=== PATIENT | female | born 1945 | race Asian ===

== ENCOUNTER 2022-01-01 10:31 | Inpatient (IN) | payer OTHER ==
[~2022-01-01] VITALS: Ht 134.6 cm; Wt 49.0 kg
[2022-01-01 10:34] VITALS: BP_SYST 179
--- NOTE | 2022-01-01 10:35 | NUR ---
PT TRIAGED AND PLACED IN ED WAITING ROOM FOR AVAIABLE BED, MD AWARE OF MSE NEEDS
[2022-01-01] MEDS ORDERED: ALBUTEROL SULFATE 0.083% 2.5 MG/3 ML VIAL.NEB INH ONE (11:15)
--- NOTE | 2022-01-01 11:17 | NUR ---
RT WITH PT FOR BREATHING TX
--- NOTE | 2022-01-01 12:50 | NUR ---
RECEIVED PT TO BED #8 FROM HOME WITH CC OF SOME DIFFICULTY BREATHING AT HOME. PT STATED SHE HAD SOME ISSUES WITH THE ANIMALS THAT VISITED WITH HER FAMILY. PT IS STABLE, NAD, VSS, AAOx4, AWAITING DISPOSITION WITH PLAN OF CARE.
[2022-01-01 14:40] LABS: HEMATOCRIT 37.5 % (36-48); HEMOGLOBIN 11.8 g/dL (12.0-16.0); MEAN CORPUSCULAR HEMOGLOBIN 21 pg (27-31); MEAN CORPUSCULAR HGB CONC 31 % (32-36); MEAN CORPUSCULAR VOLUME 65 fL (79.0-98.0); PLATELET COUNT (AUTO) 172 K/uL (130-430); RED BLOOD CELL COUNT(AUTO) 5.76 MIL/uL (4.2-6.2); RED CELL DISTRIBUTION WIDTH 16.1 % (9.0-15.0); WHITE BLOOD COUNT (AUTO) 7.7 K/uL (4.8-10.8)
[2022-01-01 14:51] LABS: ANION GAP 2 (5-15); CALCIUM 8.1 mg/dL (8.4-11.0); CHLORIDE 100 mmol/L (98-107); CREATININE 0.62 mg/dL (0.55-1.30); GLUCOSE 110 mg/dL (70-99); POTASSIUM 3.1 mmol/L (3.5-5.1); SODIUM SERUM 135 mmol/L (136-145); UREA NITROGEN, BLOOD 14 mg/dL (8-21)
[2022-01-01 14:57] LABS: PROTHROMBIN TIME 10.1 SECS (9.5-12.5)
[2022-01-01 15:00] LABS: ALANINE AMINOTRANSFERASE 31 U/L (12-78); ALBUMIN 3.4 g/dL (3.4-4.8); ASPARTATE AMINOTRANSFERASE 25 U/L (10-37); TOTAL BILIRUBIN 1.4 mg/dL (0.0-1.0)
[2022-01-01 15:01] LABS: LYMPHOCYTES % (MANUAL) 16 % (20-46)
[2022-01-01 15:02] LABS: BASOPHILS % (MANUAL) 0 % (0-2); EOSINOPHILS % (MANUAL) 2 % (0-7); MONOCYTES % (MANUAL) 7 % (0-11)
[2022-01-01] MEDS ORDERED: FUROSEMIDE 40 MG/4 ML VIAL IVP ONE (15:15)
[2022-01-01] MEDS ORDERED: POTASSIUM CHLORIDE 20 MEQ/PKT PACKET PO ONE (15:15)
--- NOTE | 2022-01-01 15:30 | NUR ---
UA and covid swab collected and sent to lab
--- NOTE | 2022-01-01 15:36 | NUR ---
# 20 gauge angiocath placed to rfa. Use of asceptic technique. Opsite placed over site. Blood return noted. Blood for lab drawn from site. Flushed with 10 cc of normal saline. No evidence of infiltration noted. Patient tolerated well.
[2022-01-01 15:41] LABS: BILIRUBIN,URINE NEGATIVE (NEGATIVE); BLOOD, URINE NEGATIVE (NEGATIVE); CLARITY/URINE CLEAR (CLEAR); COLOR,URINE YELLOW (YELLOW); GLUCOSE,URINE NEGATIVE (NEGATIVE); KETONES,URINE TRACE (NEGATIVE); LEUKOCYTE ESTERASE ,URINE NEGATIVE (NEGATIVE); NITRITE, URINE NEGATIVE (NEGATIVE); PH,URINE 7.5 (5.0-8.0); PROTEIN URINE NEGATIVE (NEGATIVE); UROBILINOGEN,URINE 0.2 (0.2-1.0)
--- NOTE | 2022-01-01 16:20 | NUR ---
Admit bed requested Patient will be admitted to care of . Admitted to TELE unit. Diagnosis CHF Inpatient (Yes or No) Y Observation (Yes or No) N Orientation concerns or request close to nursing station (Yes or No) N Covid Status N On vent or bipap N Isolation requirements N Needs a sitter N From Home (Yes or if No enter name of facility) Y Requires Dialysis (Yes or No) N Med Rec Completed (Yes of No) Y
[2022-01-01] MEDS ORDERED: ATEN-41 PO (16:44)
[2022-01-01] MEDS ORDERED: LOSA100T3 PO (16:44)
[2022-01-01] MEDS ORDERED: HYDR-4038 PO (16:44)
--- NOTE | 2022-01-01 17:13 | NUR ---
Patient will be admitted to care of [facility]. Admitted to TELE unit. Will go to room 134 B. Belongings list completed. Complete and up to date summary report printed. SBAR report to be given at bedside with opportunity for questions.
[2022-01-01 17:31] VITALS: BP_SYST 137
[2022-01-01 20:00] VITALS: BP_SYST 120
[2022-01-01] MEDS ORDERED: HYDROcodone/ACETAMIN 5-325 MG TAB (NORCO/ VICODIN) PO PRN (22:30)
[2022-01-01] MEDS ORDERED: NALOXONE HCL 0.4 MG/ML AMP (NARCAN) IVP PRN ×2 (22:30)
[2022-01-01] MEDS ORDERED: HYDROcodone/ACETAMIN 10-325 MG TAB PO PRN (22:30)
[2022-01-01] MEDS ORDERED: ONDANSETRON HCL 4 MG/2 ML VIAL IVP PRN (22:30)
[2022-01-01] MEDS ORDERED: LORazepam 2 MG/ML VIAL IVP PRN (22:30)
[2022-01-01] MEDS ORDERED: ACETAMINOPHEN 325 MG TABLET PO PRN (22:30)
[2022-01-02] VITALS: BP_SYST 134
--- NOTE | 2022-01-02 03:32 | NUR ---
Consultation Paged Reason for Consult: Congestive Heart Failure Was consult called: Y Person who was notified: Ward Consulting Physician: Karlos Haines Ordering Physician: Jevon Haines
[2022-01-02 04:00] VITALS: BP_SYST 130
[2022-01-02] MEDS: NORMAL SALINE 5 ML DISP.SYRIN IVF SCH ×6 (06:46→21:45)
[2022-01-02 07:02] LABS: BASOPHILS % (AUTO) 0.8 % (0.0-2.0); EOSINOPHILS # (AUTO) 0.2 K/uL (0.0-0.4); EOSINOPHILS % (AUTO) 4.5 % (0.0-4.0); HEMOGLOBIN 11.8 g/dL (12.0-16.0); LYMPHOCYTES # (AUTO) 0.9 K/uL (1.0-5.5); LYMPHOCYTES % (AUTO) 19.5 % (20.5-51.5); MEAN CORPUSCULAR HEMOGLOBIN 20 pg (27-31); MEAN CORPUSCULAR HGB CONC 31 % (32-36); MEAN CORPUSCULAR VOLUME 65 fL (79.0-98.0); MONOCYTES # (AUTO) 0.3 K/uL (0.0-1.0); MONOCYTES % (AUTO) 6.3 % (1.7-9.3); NEUTROPHILS # (AUTO) 3.4 K/uL (1.8-7.7); PLATELET COUNT (AUTO) 183 K/uL (130-430); RED BLOOD CELL COUNT(AUTO) 5.87 MIL/uL (4.2-6.2); WHITE BLOOD COUNT (AUTO) 4.9 K/uL (4.8-10.8)
[2022-01-02 07:15] LABS: ANION GAP 5 (5-15); CALCIUM 8.5 mg/dL (8.4-11.0); CHLORIDE 102 mmol/L (98-107); CREATININE 0.67 mg/dL (0.55-1.30); GLUCOSE 124 mg/dL (70-99); PHOSPHORUS 3.6 mg/dL (2.7-4.5); POTASSIUM 3.3 mmol/L (3.5-5.1); SODIUM SERUM 140 mmol/L (136-145); UREA NITROGEN, BLOOD 19 mg/dL (8-21)
--- NOTE | 2022-01-02 07:35 | NUR ---
MORNING ROUNDS: PATIENT RESTING DURING ROUNDS. IV SALINE LOCK AT RIGHT FOREARM INTACT. CALL LIGHT WITH IN REACH. BED LOCKED AT LOWEST POSITION. DENIES ANY PAIN. CONTINUE TO MONITOR.
[2022-01-02 08:00] VITALS: BP_SYST 143
[2022-01-02 08:27] LABS: NEUTROPHILS % (AUTO) 68.9 % (40.0-70.0)
[2022-01-02] MEDS: LOSARTAN POTASSIUM 50 MG TABLET (COZAAR) PO SCH (09:09)
[2022-01-02] MEDS: ATENOLOL 25 MG TABLET(TENORMIN) PO SCH (09:10)
[2022-01-02] MEDS: hydrALAZINE HCL 25 MG TABLET PO SCH (09:11)
[2022-01-02] MEDS ORDERED: POTASSIUM CHLORIDE 20 MEQ TAB.PRT.SR PO ONE (11:30)
[2022-01-02 12:00] VITALS: BP_SYST 141
[2022-01-02 16:00] VITALS: BP_SYST 144
--- NOTE | 2022-01-02 18:22 | NUR ---
EVENING ROUNDS: PATIENT HAVING DINNER.NO COMPLAINED MADE. CALL LIGHT WITH IN REACH. BED LOCKED AT LOWEST POSITION. NOT IN NAY DISTRESS.
[2022-01-02] MEDS ORDERED: hydrALAZINE HCL 25 MG TABLET PO ONE ×2 (23:00)
[2022-01-03 01:42] VITALS: BP_SYST 136
[2022-01-03] MEDS: NORMAL SALINE 5 ML DISP.SYRIN IVF SCH ×2 (06:35→06:36)
[2022-01-03 06:44] LABS: HEMATOCRIT 39.3 % (36-48); HEMOGLOBIN 12.2 g/dL (12.0-16.0); MEAN CORPUSCULAR HEMOGLOBIN 20 pg (27-31); MEAN CORPUSCULAR HGB CONC 31 % (32-36); MEAN CORPUSCULAR VOLUME 64 fL (79.0-98.0); PLATELET COUNT (AUTO) 203 K/uL (130-430); RED BLOOD CELL COUNT(AUTO) 6.12 MIL/uL (4.2-6.2); RED CELL DISTRIBUTION WIDTH 15.9 % (9.0-15.0); WHITE BLOOD COUNT (AUTO) 4.4 K/uL (4.8-10.8)
--- NOTE | 2022-01-03 07:30 | NUR ---
MORNING ROUNDS: PATIENT LYING IN THE BED,AWAKE,ALERT AND ORIENTED X4. CALL LIGHT WITH IN REACH. BED LOCKED AT LOWEST POSITION. NO ACUTE DISTRESS.
[2022-01-03 07:39] LABS: ANION GAP 5 (5-15); CALCIUM 8.8 mg/dL (8.4-11.0); CHLORIDE 104 mmol/L (98-107); CREATININE 0.65 mg/dL (0.55-1.30); GLUCOSE 138 mg/dL (70-99); POTASSIUM 3.9 mmol/L (3.5-5.1); SODIUM SERUM 141 mmol/L (136-145); UREA NITROGEN, BLOOD 19 mg/dL (8-21)
[2022-01-03 08:15] VITALS: BP_SYST 156
[2022-01-03] MEDS: ATENOLOL 25 MG TABLET(TENORMIN) PO SCH (08:48)
[2022-01-03] MEDS: LOSARTAN POTASSIUM 50 MG TABLET (COZAAR) PO SCH (08:48)
[2022-01-03] MEDS: hydrALAZINE HCL 25 MG TABLET PO SCH (08:49)
--- NOTE | 2022-01-03 10:25 | NUR ---
CM: Informed and faxed the dc/HH order to edmar Gonzalez at [facility] # [phone] [facility], stated she will contact Marlin and the dcp dept to call me back to update the HH arrangement.
[2022-01-03 12:20] VITALS: BP_SYST 138
[2022-01-03 12:26] LABS: BASOPHILS % (MANUAL) 0 % (0-2); EOSINOPHILS % (MANUAL) 4 % (0-7); LYMPHOCYTES % (MANUAL) 14 % (20-46); MONOCYTES % (MANUAL) 10 % (0-11)
--- NOTE | 2022-01-03 15:20 | NUR ---
CARDIO PAGED: SPOKE WITH DR. Stephanie BLANCO AND PATIENT CLEARED FOR DISCHARGE HOME. F/U APT WITH DR Stephanie BLANCO AT HIS OFFICE ON January @ 1806.
--- NOTE | 2022-01-03 15:22 | NUR ---
CHF PROTOCOL: PATIENT WILL BE SEEN BY DR Stephanie BLANCO AT HIS OFFICE ON January @ 1330PM.
[2022-01-03 16:00] VITALS: BP_SYST 125
--- NOTE | 2022-01-03 19:09 | NUR ---
EVENING ROUNDS: PATIENT WAITING FOR HER RIDE. DISCHARGE PACKETS ENDORSED TO NIGHT NURSE ALO.PATIENT IS STABLE TO GO HOME ORDERED.
[2022-01-03 19:31] VITALS: BP_SYST 105
--- NOTE | 2022-01-03 19:31 | NUR ---
D/C Patient Patient given medication reconciliation form and D/C instructions. Exit Care provided. Patient verbalized understanding. MD discussed with patient the results and treatment provided. Ambulatory with steady gait for discharge to home. Patient in stable condition, ID band removed. IV catheter removed, intact and dressing applied, no active bleeding. follow up instruction has been of given. patent said will follow up with Dr. Thomas on Tuesday for her appointment. Patient educated on pain management. All belongings sent with patient.
--- NOTE | 2022-01-03 22:41 | NUR ---
patient was going home with her sister. 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 brewer. Vital sign is stable.
--- NOTE | 2022-01-15 15:56 | NUR ---
Curatorial Assistant [employer] INVESTIGATOR made a Post Discharge Follow-Up Phone Call to former pt. Kei who really appreciated the follow up call, stated she was doing well. HH has been out only 1 time for meds recon. Kei has an apt. with her PCP on 01/22. Kei did not have any issues or concerns.
== END 2022-01-03 20:24 | disposition home health service (06) | DRG 280 ==
LOC: SED 10:31 → STU 16:07
PROVIDERS: ADMIT Preventive Medicine Preventive Medicine/Occupational Environmental Medicine; ATTEND Preventive Medicine Preventive Medicine/Occupational Environmental Medicine
DX: I11.0 Hypertensive heart disease with heart failure (principal); I21.A1 Myocardial infarction type 2; I50.33 Acute on chronic diastolic (congestive) heart failure; E87.1 Hypo-osmolality and hyponatremia; E87.6 Hypokalemia; I42.9 Cardiomyopathy, unspecified; E11.65 Type 2 diabetes mellitus with hyperglycemia; Z20.822 Contact with and (suspected) exposure to COVID-19; J45.909 Unspecified asthma, uncomplicated; E83.51 Hypocalcemia; E88.09 Other disorders of plasma-protein metabolism, not elsewhere classified; I50.9 Heart failure, unspecified; R06.03 Acute respiratory distress; Z88.6 Allergy status to analgesic agent; Z88.8 Allergy status to other drugs, medicaments and biological substances; Z91.09 Other allergy status, other than to drugs and biological substances; Z79.899 Other long term (current) drug therapy
CPT/HCPCS: 36415; 71045; 80048; 80053; 81003; 82962; 83735; 83880; 84100; 84484; 85007; 85025; 85027; 85379; 85610-TC; 93005; 93306; 94640; 96374; 99285; G0378; J1940; J7613

== ENCOUNTER 2024-01-08 11:40 | Inpatient (IN) | payer OTHER ==
[~2024-01-08] VITALS: Ht 139.7 cm; Wt 44.7 kg
[~2024-01-08 11:40] MED LIST: ATEN-41 PO; HYDR25TA86 PO; LOSA-415 PO
[2024-01-08 11:53] VITALS: BP_SYST 131; PULSE 65; RESP 22; TEMP 98.3; O2SAT 98
[2024-01-08 13:04] LABS: HEMATOCRIT 44.1 % (36-48); HEMOGLOBIN 13.4 g/dL (12.0-16.0); MEAN CORPUSCULAR HEMOGLOBIN 21 pg (27-31); MEAN CORPUSCULAR HGB CONC 31 % (32-36); MEAN CORPUSCULAR VOLUME 69 fL (79.0-98.0); PLATELET COUNT (AUTO) 230 K/uL (130-430); RED BLOOD CELL COUNT(AUTO) 6.38 MIL/uL (4.2-6.2); RED CELL DISTRIBUTION WIDTH 16.1 % (9.0-15.0); WHITE BLOOD COUNT (AUTO) 5.4 K/uL (4.8-10.8)
[2024-01-08 13:26] LABS: PROTHROMBIN TIME 10.6 SECS (9.5-12.5)
[2024-01-08 13:32] LABS: ANION GAP 6 (5-15); CARBON DIOXIDE 31 mmol/L (23-29); CHLORIDE 106 mmol/L (98-107); CREATININE 0.96 mg/dL (0.55-1.30); GLUCOSE 119 mg/dL (74-106); POTASSIUM 3.6 mmol/L (3.5-5.1); SODIUM SERUM 143 mmol/L (136-145); UREA NITROGEN, BLOOD 24 mg/dL (8-21)
[2024-01-08 13:47] LABS: BASOPHILS % (MANUAL) 0 % (0-2); EOSINOPHILS % (MANUAL) 7 % (0-7); LYMPHOCYTES % (MANUAL) 16 % (20-46); MONOCYTES % (MANUAL) 7 % (0-11)
[2024-01-08 13:48] LABS: ANISOCYTOSIS 1+; HYPOCHROMASIA 1+; OVALOCYTES FEW; PLATELET ESTIMATE ADEQUATE (ADEQUATE); TARGET CELLS FEW
[2024-01-08] MEDS ORDERED: DAPA10TA PO (14:35)
[2024-01-08] MEDS ORDERED: POTA-197 PO (14:35)
[2024-01-08] MEDS ORDERED: ACET250T28 PO (14:35)
[2024-01-08] MEDS ORDERED: CARV12.548 PO (14:35)
[2024-01-08] MEDS ORDERED: BUDE6.9H INH (14:35)
[2024-01-08] MEDS ORDERED: ALBU2.5V7 INH (14:35)
[2024-01-08] MEDS ORDERED: APIX2.5T PO (14:35)
[2024-01-08] MEDS ORDERED: INSU100V SUBCUT (14:35)
[2024-01-08] MEDS ORDERED: FURO-150 PO (14:35)
[2024-01-08 20:00] VITALS: O2SAT 96
[2024-01-08 20:05] VITALS: BP_SYST 141; PULSE 67; RESP 16; TEMP 98.1; O2SAT 96
[2024-01-08] MEDS ORDERED: INSULIN REGULAR, HUMAN 100 UNITS/ML, 3 ML VIAL (humuLIN R) SUBCUT PRN (22:45)
[2024-01-08] MEDS ORDERED: HYDROcodone/ACETAMIN 10-325 MG TAB PO PRN (22:45)
[2024-01-08] MEDS ORDERED: ONDANSETRON HCL 4 MG/2 ML VIAL IVP PRN (22:45)
[2024-01-08] MEDS ORDERED: ACETAMINOPHEN 325 MG TABLET PO PRN (22:45)
[2024-01-08] MEDS ORDERED: LORazepam 2 MG/ML VIAL IVP PRN (22:45)
[2024-01-08] MEDS ORDERED: NALOXONE HCL 0.4 MG/ML AMP (NARCAN) IVP PRN ×2 (22:45)
[2024-01-08 22:50] VITALS: O2SAT 97
[2024-01-08] MEDS: ALBUTEROL SULFATE 0.083% 2.5 MG/3 ML VIAL.NEB INH PRN (22:57)
[2024-01-09] VITALS (7 sets, daily range): BP systolic 90–108; PULSE 65–68; RESP 14–16; TEMP 96.7–98.2; O2SAT 97–100
[2024-01-09 04:31] LABS: BASOPHILS # (AUTO) 0.1 K/uL (0.0-0.2); BASOPHILS % (AUTO) 1.3 % (0.0-2.0); EOSINOPHILS # (AUTO) 0.4 K/uL (0.0-0.4); EOSINOPHILS % (AUTO) 7.7 % (0.0-4.0); HEMATOCRIT 37.3 % (36-48); HEMOGLOBIN 11.6 g/dL (12.0-16.0); LYMPHOCYTES # (AUTO) 1.1 K/uL (1.0-5.5); LYMPHOCYTES % (AUTO) 24.9 % (20.5-51.5); MEAN CORPUSCULAR HEMOGLOBIN 21 pg (27-31); MEAN CORPUSCULAR HGB CONC 31 % (32-36); MEAN CORPUSCULAR VOLUME 68 fL (79.0-98.0); MONOCYTES # (AUTO) 0.5 K/uL (0.0-1.0); MONOCYTES % (AUTO) 11.5 % (1.7-9.3); NEUTROPHILS # (AUTO) 2.5 K/uL (1.8-7.7); NEUTROPHILS % (AUTO) 54.6 % (40.0-70.0); PLATELET COUNT (AUTO) 201 K/uL (130-430); RED BLOOD CELL COUNT(AUTO) 5.48 MIL/uL (4.2-6.2); RED CELL DISTRIBUTION WIDTH 15.7 % (9.0-15.0); WHITE BLOOD COUNT (AUTO) 4.6 K/uL (4.8-10.8)
[2024-01-09] MEDS: NORMAL SALINE 5 ML DISP.SYRIN IVF SCH (05:43)
[2024-01-09 06:17] LABS: ALANINE AMINOTRANSFERASE 27 U/L (12-78); ALBUMIN 2.9 g/dL (3.4-4.8); ANION GAP 13 (5-15); ASPARTATE AMINOTRANSFERASE 21 U/L (10-37); CALCIUM 8.1 mg/dL (8.4-11.0); CARBON DIOXIDE 24 mmol/L (23-29); CHLORIDE 109 mmol/L (98-107); CREATININE 0.81 mg/dL (0.55-1.30); GLUCOSE 115 mg/dL (74-106); PHOSPHORUS 4.4 mg/dL (2.7-4.5); SODIUM SERUM 146 mmol/L (136-145); TOTAL BILIRUBIN 0.7 mg/dL (0.0-1.0); TOTAL PROTEIN, SERUM 5.4 g/dL (6.4-8.3); UREA NITROGEN, BLOOD 21 mg/dL (8-21)
[2024-01-09] MEDS ORDERED: NON-FORMULARY MEDICATION (Dapagliflozin Propanediol (Farxiga) 10 MG) PO SCH (09:00)
[2024-01-09] MEDS ORDERED: BUDESONIDE/FORMOTEROL 80-4.5 mCg, 6.9 GM INHALER INH SCH (09:00)
[2024-01-09] MEDS: hydrALAZINE HCL 25 MG TABLET PO SCH (09:03)
[2024-01-09] MEDS: POTASSIUM CHLORIDE 20 MEQ TABLET.ER PO SCH (09:03)
[2024-01-09] MEDS: APIXABAN 2.5 MG TABLET PO SCH (09:04)
[2024-01-09] MEDS: LOSARTAN POTASSIUM 50 MG TABLET (COZAAR) PO SCH (09:05)
[2024-01-09] MEDS: acetaZOLAMIDE 250 MG TABLET (DIAMOX) PO SCH (09:05)
[2024-01-09] MEDS: FUROSEMIDE 20 MG TABLET PO SCH (09:05)
[2024-01-09] MEDS: CARVEDILOL 12.5 MG TABLET (COREG) PO SCH (09:06)
[2024-01-09] MEDS: EMPAGLIFLOZIN 10 MG TABLET PO SCH (10:22)
[2024-01-09 10:31] LABS: FREE T4 (FREE THYROXINE) 1.1 ng/dL (0.6-1.6); THYROID STIMULATING HORMONE 1.83 uIu/mL (0.34-4.82)
[2024-01-09] MEDS: HYDROcodone/ACETAMIN 5-325 MG TAB (NORCO/ VICODIN) PO PRN (15:03)
[2024-01-09] MEDS ORDERED: CARVEDILOL 6.25 MG TABLET (COREG) PO SCH (21:00)
== END 2024-01-09 17:05 | disposition home health service (06) | DRG 309 ==
LOC: SED 11:40 → STU 16:42
PROVIDERS: ADMIT Preventive Medicine Preventive Medicine/Occupational Environmental Medicine; ATTEND Preventive Medicine Preventive Medicine/Occupational Environmental Medicine
DX: I48.20 Chronic atrial fibrillation, unspecified (principal); E44.1 Mild protein-calorie malnutrition; S80.02XA Contusion of left knee, initial encounter; J45.909 Unspecified asthma, uncomplicated; E11.9 Type 2 diabetes mellitus without complications; I11.0 Hypertensive heart disease with heart failure; I50.9 Heart failure, unspecified; W18.39XA Other fall on same level, initial encounter; Z79.01 Long term (current) use of anticoagulants; Z79.899 Other long term (current) drug therapy; Y93.89 Activity, other specified; Y92.89 Other specified places as the place of occurrence of the external cause; Y99.8 Other external cause status; Z88.0 Allergy status to penicillin; Z68.22 Body mass index [BMI] 22.0-22.9, adult
CPT/HCPCS: 36415; 70450-TC; 73564; 80048; 80053; 82948; 83735; 84100; 84439; 84443; 84484; 85007; 85025; 85027; 85610; 85730; 93005; 93306; 94070; 94640; 94760; 99285; G0378